=== PATIENT | female | born 1970 | race Two or more races ===

== ENCOUNTER → 2022-03-21 | Outpatient (CLI) | payer MEDICAID ==
[~2022-03-21] MED LIST: AMLO-496 PO; HYDR12.55 PO; INSU1INJ19 SC; METF-372 PO; SITA50TA PO
== END | disposition home or self-care (01) ==
LOC: Rad HDHVI 13:51
PROVIDERS: ATTEND Internal Medicine
DX: I08.2 Rheumatic disorders of both aortic and tricuspid valves (principal); R00.2 Palpitations; I50.9 Heart failure, unspecified
CPT/HCPCS: 93306

== ENCOUNTER 2024-03-27 10:28 | Inpatient (IN) | payer MEDICAID ==
[~2024-03-27] VITALS: Ht 162.6 cm; Wt 81.4 kg
[~2024-03-27 10:28] MED LIST changes: -AMLO-496 PO; +AMLO1TAB23 PO; +SEMA2INJ3 SC
[2024-03-27 11:27] LABS: Eosinophils # (auto) 0.2 10 ^3/uL (0-0.8); Eosinophils % (auto) 2.5 % (0.0-7.0); Hemoglobin 8.7 g/dL (12.2-16.2); Monocytes # (auto) 0.4 10 ^3/uL (0-1.3); Neutrophils # (auto) 5.7 10 ^3/uL (1.6-8.6); Red Cell Distribution Width 16.1 % (11.8-14.3)
[2024-03-27 11:31] LABS: Basophils # (auto) 0.2 10 ^3/uL (0-0.2); Basophils % (auto) 2.1 % (0.0-2.0); Hematocrit 26.5 % (36.0-46.0); Lymphocytes # (auto) 0.9 10 ^3/uL (0.4-5.4); Lymphocytes % (auto) 12.6 % (10.0-50.0); Mean Corpuscular Hemoglobin 26.6 pg (28.0-32.0); Mean Corpuscular Hgb Conc. 32.8 g/dL (32.0-36.0); Mean Corpuscular Volume 81.1 fL (80.0-100.0); Monocytes % (auto) 5.6 % (0.0-12.0); Neutrophils % (auto) 77.2 % (37.0-80.0); Nucleated Red Blood Cells % 0.1 %; Red Blood Cells 3.27 10^6/uL (4.0-5.20); White Blood Cell 7.4 10^3/uL (4.4-10.8)
[2024-03-27 11:49] LABS: Chloride 100 mmol/L (98-107); Sodium 131 mmol/L (136-145)
[2024-03-27 11:50] LABS: Anion Gap 10 (5-15); Carbon Dioxide 21 mmol/L (20-30)
[2024-03-27 11:51] LABS: Calcium 9.6 mg/dL (8.7-10.4)
[2024-03-27 11:55] LABS: BUN/Creatinine Ratio 11.6 (10.0-20.0); Blood Urea Nitrogen 42 mg/dL (9-23); Glucose 240 mg/dL (74-106)
[2024-03-27] MEDS ORDERED: ONDANSETRON HCL 4 MG/2 ML VIAL IV PRN (14:15)
[2024-03-27] MEDS ORDERED: DEXTROSE (50%) 50ML SYRG IV PRN (14:15)
[2024-03-27] MEDS ORDERED: ACETAMINOPHEN 325 MG TAB PO PRN (14:15)
[2024-03-27] MEDS ORDERED: DOCUSATE SOD 100 MG CAP PO PRN (14:15)
[2024-03-27] MEDS ORDERED: HYDROcodone-ACET 5/325MG TAB PO PRN (14:15)
[2024-03-27] MEDS: metroNIDAZOLE 500MG/100ML 100 ML IV SCH (14:58)
[2024-03-27] MEDS: cefTRIAXone 1GM/50ML D5W 50 ML IV SCH (14:58)
[2024-03-27] MEDS: InsuLIN REG 1unit/0.01ml Soln (100units/ml) SC SCH (17:00)
[2024-03-27] MEDS: ACCU-CHEK COMFORT CURVE STRIP VI SCH (17:00)
[2024-03-27 18:15] VITALS: BP 161/76; PULSE 76; RESP 18; TEMP 98; O2SAT 99
[2024-03-27 20:00] VITALS: PULSE 72; RESP 20; O2SAT 95
[2024-03-27] MEDS: HYDROmorphone HCL 2 MG/ML VL/or syr IV PRN (20:26)
[2024-03-27 21:00] VITALS: BP 155/80; PULSE 72; RESP 20; TEMP 98.8; O2SAT 88
[2024-03-27] MEDS ORDERED: FUROSEMIDE 40 MG/4 ML VIAL IV SCH (22:00)
[2024-03-27] MEDS: SODIUM CHLOR 0.9% PF (SALINE LOCK) 10ML VIAL/SYR IV SCH (22:17)
[2024-03-27] MEDS: FUROSEMIDE INJECTION 10 ML ONE (23:11)
[2024-03-28] VITALS (7 sets, daily range): BP systolic 127–167; BP diastolic 62–89; PULSE 67–95; RESP 16–20; TEMP 97.9–99; O2SAT 88–98
[2024-03-28] MEDS: FUROSEMIDE INJECTION 100 MG in D5W 5% 100 ML IV SCH (00:04)
[2024-03-28 04:27] LABS: Urine Bacteria None Seen /hpf (None Seen)
[2024-03-28] MEDS: hydrALAZINE HCL 20 MG/ML VL IV PRN (04:52)
[2024-03-28 05:04] LABS: Urine Blood TRACE /uL (Negative); Urine Clarity Clear (Clear); Urine Color Colorless (Yellow); Urine Protein, UAD 1+ (Negative); Urine Specific Gravity 1.009 (1.001-1.035); Urine Urobilinogen Normal (Negative); Urine WBC 16 /hpf (0 - 5)
[2024-03-28] MEDS ORDERED: CLOP75TA28 PO (05:24)
[2024-03-28] MEDS: INSULIN LANTUS (GLARGINE) 1 /0.01ml (100units/ml) SC SCH (06:40)
[2024-03-28] MEDS: PANTOPRAZOLE 40 MG/10 ML VIAL INJ IV SCH (10:00)
[2024-03-28] MEDS ORDERED: amLODIPine BESYLATE 5 MG TAB PO SCH (10:00)
[2024-03-28] MEDS: METOPROLOL SUCCINATE XL 50 MG TAB PO SCH (11:15)
[2024-03-28] MEDS: PANTOPRAZOLE 40 MG TAB PO ONE (11:15)
[2024-03-28 12:38] LABS: Anion Gap 10 (5-15); Calcium 9.6 mg/dL (8.7-10.4); Carbon Dioxide 23 mmol/L (20-30); Chloride 104 mmol/L (98-107); Potassium 3.8 mmol/L (3.5-5.1); Sodium 137 mmol/L (136-145)
[2024-03-28 12:44] LABS: BUN/Creatinine Ratio 13.3 (10.0-20.0); Blood Urea Nitrogen 39 mg/dL (9-23); Glucose 160 mg/dL (74-106)
[2024-03-28] MEDS ORDERED: ISOS5TAB PO (17:13)
[2024-03-28] MEDS ORDERED: CALC1CAP31 PO (17:13)
[2024-03-28] MEDS ORDERED: CHOL20007 PO (17:13)
[2024-03-28] MEDS ORDERED: SODI650T PO (17:13)
[2024-03-28] MEDS ORDERED: SACU1TAB4 PO (17:13)
[2024-03-28] MEDS ORDERED: ATOR10TA PO (17:13)
[2024-03-28] MEDS ORDERED: HYDR-2792 PO (17:13)
[2024-03-28] MEDS ORDERED: FURO40TA4 PO (17:13)
[2024-03-28] MEDS ORDERED: ASPI81CH59 PO (17:13)
[2024-03-28] MEDS ORDERED: METO25TA93 PO (17:13)
[2024-03-28] MEDS ORDERED: INSU100I54 SC (17:22)
[2024-03-28] MEDS: FUROSEMIDE 40 MG/4 ML VIAL IV SCH (18:30)
[2024-03-28] MEDS: ATORVASTATIN 20 MG TAB PO SCH (21:43)
[2024-03-29 01:00] VITALS: BP 160/68; PULSE 72; RESP 20; TEMP 98.1; O2SAT 94
[2024-03-29 05:00] VITALS: BP 152/75; PULSE 68; RESP 18; TEMP 98.2; O2SAT 95
[2024-03-29] MEDS: PANTOPRAZOLE 40 MG TAB PO SCH (05:25)
[2024-03-29] MEDS: INSULIN LANTUS (GLARGINE) 1 /0.01ml (100units/ml) SC SCH (06:25)
[2024-03-29 06:32] LABS: Lymphocytes # (auto) 1.1 10 ^3/uL (0.4-5.4); Monocytes # (auto) 0.4 10 ^3/uL (0-1.3)
[2024-03-29 06:37] LABS: Basophils # (auto) 0.1 10 ^3/uL (0-0.2); Eosinophils # (auto) 0.2 10 ^3/uL (0-0.8); Eosinophils % (auto) 3.1 % (0.0-7.0); Hematocrit 23.3 % (36.0-46.0); Hemoglobin 7.7 g/dL (12.2-16.2); Lymphocytes % (auto) 14.4 % (10.0-50.0); Mean Corpuscular Hemoglobin 26.8 pg (28.0-32.0); Mean Corpuscular Hgb Conc. 33.2 g/dL (32.0-36.0); Mean Corpuscular Volume 80.7 fL (80.0-100.0); Monocytes % (auto) 5.7 % (0.0-12.0); Neutrophils # (auto) 5.5 10 ^3/uL (1.6-8.6); Neutrophils % (auto) 74.8 % (37.0-80.0); Red Blood Cells 2.89 10^6/uL (4.0-5.20); Red Cell Distribution Width 16.2 % (11.8-14.3); White Blood Cell 7.4 10^3/uL (4.4-10.8)
[2024-03-29 06:41] LABS: Alanine Aminotransferase 23 U/L (7-40); Albumin 3.7 g/dL (3.2-4.8); Alkaline Phosphatase 167 U/L (46-116); Anion Gap 9 (5-15); Aspartate Aminotransferase 26 U/L (13-40); BUN/Creatinine Ratio 12.8 (10.0-20.0); Bilirubin, Total 0.8 mg/dL (0.2-1.0); Blood Urea Nitrogen 38 mg/dL (9-23); Calcium 9.5 mg/dL (8.7-10.4); Carbon Dioxide 23 mmol/L (20-30); Chloride 105 mmol/L (98-107); Glucose 168 mg/dL (74-106); Potassium 3.8 mmol/L (3.5-5.1); Sodium 137 mmol/L (136-145); Total Protein 7.3 g/dL (5.7-8.2)
[2024-03-29 09:00] VITALS: BP 138/79; PULSE 66; RESP 17; TEMP 98.4; O2SAT 95
[2024-03-29] MEDS: ASPirin 81 mg TAB PO SCH (10:18)
[2024-03-29] MEDS: amLODIPine BESYLATE 5 MG TAB PO SCH ×2 (10:19→21:25)
[2024-03-29] MEDS: metOLazone 5 MG TAB PO ONE (10:20)
[2024-03-29] MEDS: IRON SUCROSE COMPLEX 100 ML IV SCH (12:37)
[2024-03-29 13:00] VITALS: BP 139/75; PULSE 66; RESP 17; TEMP 98.1; O2SAT 93
[2024-03-29 16:44] VITALS: BP 146/77; PULSE 64; RESP 17; TEMP 98.2; O2SAT 95
[2024-03-30 06:54] LABS: Anion Gap 8 (5-15); Carbon Dioxide 24 mmol/L (20-30); Chloride 103 mmol/L (98-107); Potassium 3.5 mmol/L (3.5-5.1); Sodium 135 mmol/L (136-145)
[2024-03-30 06:55] LABS: Calcium 9.3 mg/dL (8.7-10.4)
[2024-03-30 06:59] LABS: Glucose 104 mg/dL (74-106)
[2024-03-30 07:00] LABS: BUN/Creatinine Ratio 13.7 (10.0-20.0); Blood Urea Nitrogen 37 mg/dL (9-23)
[2024-03-30] MEDS: EMPAGLIFLOZIN 10 MG TAB PO SCH (08:58)
[2024-03-30] MEDS ORDERED: METO25TA36 PO (10:52)
[2024-03-30] MEDS ORDERED: B-COTAB10 PO (10:52)
[2024-03-30] MEDS ORDERED: FURO1TAB31 PO (10:52)
[2024-03-30 12:16] VITALS: BP 147/75; PULSE 56; RESP 18; TEMP 98.6; O2SAT 97
[2024-03-30 14:42] VITALS: BP 131/72; PULSE 62; RESP 18; TEMP 98; O2SAT 97
== END 2024-03-30 15:30 | disposition home or self-care (01) | DRG 194 ==
LOC: ER 10:28 → OVERFLOW 14:07 → CENTRAL 18:10
PROVIDERS: ADMIT Internal Medicine; ATTEND Internal Medicine
DX: I13.0 Hypertensive heart and chronic kidney disease with heart failure and stage 1 through stage 4 chronic kidney disease, or unspecified chronic kidney disease (principal); N17.0 Acute kidney failure with tubular necrosis; E87.1 Hypo-osmolality and hyponatremia; N13.6 Pyonephrosis; E11.22 Type 2 diabetes mellitus with diabetic chronic kidney disease; D64.9 Anemia, unspecified; K76.1 Chronic passive congestion of liver; I50.43 Acute on chronic combined systolic (congestive) and diastolic (congestive) heart failure; I25.10 Atherosclerotic heart disease of native coronary artery without angina pectoris; N18.31 Chronic kidney disease, stage 3a; E78.5 Hyperlipidemia, unspecified; E66.9 Obesity, unspecified; E11.51 Type 2 diabetes mellitus with diabetic peripheral angiopathy without gangrene; Z95.1 Presence of aortocoronary bypass graft; Z79.899 Other long term (current) drug therapy; Z81.8 Family history of other mental and behavioral disorders; Z68.30 Body mass index [BMI] 30.0-30.9, adult
CPT/HCPCS: 36415; 71046; 76705; 78226; 80048; 80053; 81001; 81025; 82962; 83036; 83605; 83880; 84443; 84484; 85025; 87040; 87081; 93005; 93306; 99291; G0378; J1756; J1815; J3490; J7060

== ENCOUNTER 2025-04-24 08:43 | Outpatient (CLI) | payer MEDICAID ==
[~2025-04-24 08:43] MED LIST changes: -AMLO1TAB23 PO; +ASPI81CH59 PO; +ATOR10TA PO; +CALC1CAP31 PO; +CHOL20007 PO; +CLOP75TA28 PO; +DAPA1TAB4 PO; +FENO145T27 PO; +HYDR-2792 PO; -HYDR12.55 PO; +INSU100I54 SC; +ISOS5TAB PO; +METO25TA93 PO; +SODI650T PO
[2025-04-24] MEDS ORDERED: REGADENOSON 0.4 MG/5 ML SYRG IV ONE ×2 (10:46→11:00)
--- NOTE | 2025-04-24 15:00 | DVHSR ---
APPROVED REPORT Exam: Nuclear Stress Test BMI: 0 Stress Test Details HR Max Heart Rate (APMHR): 167.934145 bpm Target HR (85% APMHR): 141.401351 bpm BP ECG Stress ECG Conclusion inferior wall infarct and ischemia is noted LV dilated severe LV dysfunction lvef 36% anterolateral wall is infarcted , old [place] NM EXAM: Myocardial Perfusion REST/STRESS Imaging Protocol: Rest Tc-99m/Stress Tc-99m 1 day Resting Data Rest SPECT myocardial perfusion imaging was performed in supine position 60 minutes following the int ravenous injection of 10.6 mCi of Tc-99m Sestamibi. Time of rest injection: 09:15 Date: 04/24/2025 Time of rest imagin:15 Date: 04/24/2025 Administration Route: IV Administration Site: Right Arm Pharmacologic Stress Pharmacologic stress test was performed by injecting Regadenoson 0.4 mg IV push followed by the intra venous injection of 33.7 mCi of Tc-99m Sestamibi. Time of stress injection: 10:50 Date: 04/24/2025 Time of stress imagin:50 Date: 04/24/2025 Administration Route: IV Administration Site: Right Arm Gated Stress SPECT was performed 60 minutes after stress injection. The images were gated to evaluate regional wall motion and calculate left ventricular ejection fracti on. Stress only was performed in the Supine position. Nuclear Conclusion Nuclear Findings: positive for ischemia inferior wall infarct and ischemia is noted LV dilated severe LV dysfunction lvef 36% anterolateral wall is infarcted , old [place]
== END 2025-04-24 17:00 | disposition home or self-care (01) ==
LOC: XY 08:43
PROVIDERS: ATTEND Internal Medicine
DX: I25.9 Chronic ischemic heart disease, unspecified (principal); I25.810 Atherosclerosis of coronary artery bypass graft(s) without angina pectoris; I13.0 Hypertensive heart and chronic kidney disease with heart failure and stage 1 through stage 4 chronic kidney disease, or unspecified chronic kidney disease; E11.22 Type 2 diabetes mellitus with diabetic chronic kidney disease; I50.42 Chronic combined systolic (congestive) and diastolic (congestive) heart failure; N18.32 Chronic kidney disease, stage 3b
CPT/HCPCS: 78452; 93017; A9500; J2785